=== PATIENT | male | born 1990 | race Caucasian/White ===

== ENCOUNTER 2021-10-31 09:23 | Emergency (ER) | payer BC ==
[2021-10-31] MEDS ORDERED: Metoclopramide 10 MG/2 ML SDV IVPUSH ONE (09:43)
[2021-10-31] MEDS ORDERED: Diphtheria,Pertussis(Acell),Tetanus Vaccine 0.5 ML Syringe IM ONE (09:43)
[2021-10-31] MEDS ORDERED: HYDROmorphone 1 MG/ML Syringe IVPUSH ONE (09:43)
== END 2021-10-31 11:34 | disposition home or self-care (01) ==
LOC: JD.ED 09:23
DX: T20.20XA Burn of second degree of head, face, and neck, unspecified site, initial encounter (principal); T23.271A Burn of second degree of right wrist, initial encounter; E66.9 Obesity, unspecified; Z68.31 Body mass index [BMI] 31.0-31.9, adult; Z91.09 Other allergy status, other than to drugs and biological substances; Z23 Encounter for immunization
CPT/HCPCS: 16020; 90471; 90715; 96374; 96375; 99283; J1170; J2765